=== PATIENT | female | born 2005 | race Caucasian/White ===

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

== ENCOUNTER 2025-05-27 15:46 | Emergency (ER) | payer MEDICAID, SELFPAY ==
[2025-05-27 15:48] VITALS: BP 109/71; PULSE 84; RESP 14; TEMP 37; O2SAT 98
== END 2025-05-27 16:37 | disposition left against medical advice (07) ==
LOC: ER 16:40
DX: Z53.21 Procedure and treatment not carried out due to patient leaving prior to being seen by health care provider (principal)

== ENCOUNTER 2025-06-11 10:51 | Emergency (ER) | payer MEDICAID, SELFPAY ==
[2025-06-11 11:06] VITALS: BP 98/65; PULSE 66; RESP 14; TEMP 36.7; O2SAT 97
--- NOTE | 2025-06-11 13:03 | W.ED.GENAD ---
Discharge Plan Disposition Patient Disposition: Home Discharge Details Clinical Impression: Sciatica Primary Care Provider: Rosy Antony ED Provider: Jose Rubin Home Meds and New Rx's Prescriptions: New prednisone 20 mg tablet 20 mg PO DAILY Qty: 3 0RF acetaminophen [Tylenol] 325 mg tablet 650 mg PO ONCE PRNQty: 30 0RF naproxen 250 mg tablet 250 mg PO BID PRNQty: 14 0RF cyclobenzaprine 5 mg tablet 5 mg PO QHS PRNQty: 7 0RF Continued propranolol 20 mg tablet 20 mg PO BID Patient Comments: TAKE ONE TABLET BY MOUTH TWICE A DAY citalopram 10 mg tablet 10 mg PO DAILY Patient Comments: TAKE ONE TABLET BY MOUTH EVERY DAY atomoxetine [Strattera] 18 mg capsule 18 mg PO ONCE albuterol 90 mcg/actuation aerosol 90 mcg inhalation PRN Discharge Instructions Instructions: Sciatica ED Additional Instructions: Please follow-up with your primary care provider regarding your visit to the emergency department today. Be sure to discuss results of all test performed here today to include radiology, and laboratory testing as well as results for any pending cultures. Should your symptoms worsen, or if you develop new concerning symptoms, please return immediately emergency department for further evaluation. HPI General Date/Time Provider Initiated Documentation: 06/11/25 11:03. HPI Narrative: MDM/Narrative: Initial Assessment: Hip pain radiating to knee, exacerbated by knee bending or outward movement, with recent heavy lifting. Differential Diagnosis: - Sciatic nerve irritation: Pain radiating down leg, exacerbated by certain movements. Plan: Tylenol, naproxen, prednisone, muscle relaxer. Referral to physical therapy. - Muscle strain: Recent heavy lifting. Plan: Same as above. - Doubt cauda equina given lack of red flag symptoms, normal motor function and sensation on examination ED Course: Administered Tylenol, naproxen, prednisone, muscle relaxer. Final Assessment: Administered medications for pain and inflammation, muscle relaxer. Referral to physical therapy. Clinical Impression: Sciatic nerve irritation, muscle strain. Disposition: Discharge home. Return if significant issues persist or new symptoms develop. Follow-Up: Referral to physical therapy. Work note for 2 days. Patient Education: Advised on medication use, including drowsiness from muscle relaxer. Encouraged to stay active and avoid prolonged rest. This document was created with assistance from EILEEN Co-Director Of Event Sales. The patient consented to its use. HPI: The patient is a 20-year-old female presenting with hip pain radiating to the knee, described as sharp and electric shock-like in nature. The pain has been intermittent since the day before yesterday, with a notable intensification this morning, resulting in a fall. The patient denies any specific injury but reports recent engagement in heavy lifting activities. She has not taken any [id number] medications for pain relief. There are no associated symptoms of numbness, weakness, or loss of bladder or bowel control. The patient has no other known medical conditions, denies drug use, and reports no fevers or chills. She has a history of irregular menstrual cycles. The pain exacerbates with knee flexion or external rotation and alleviates with knee extension or internal rotation. She denies any spinal pain. ROS: Negative besides as mentioned above Exam: Vital signs: Reviewed. General Appearance: Alert and oriented. No acute distress. HEENT: NCAT, EOMI, not icteric. External ears normal. No rhinorrhea. Moist mucous membranes. Neck: Supple, full range of motion, no observable masses, No meningeal sign. Respiratory: No Respiratory distress. No tachypnea. Cardiovascular: RRR, no edema. Gastrointestinal: Soft, nondistended, No rebound tenderness. Back: No midline back pain of the CT or L-spine Musculoskeletal: Pain with hip flexion and extension and external rotation. Negative straight leg raise bilaterally. Pain to palpation over the left sciatic notch Skin: Warm and dry, no rash. Neurological: Normal Gait, Grossly intact. Psychiatric: Appropriate for situation. Related Data Home Medications ?Medication ?Instructions ?Recorded ?Confirmed albuterol 90 mcg/actuation aerosol 90 mcg inhalation PRN 01/13/24 06/11/25 inhaler atomoxetine 18 mg capsule 18 mg PO ONCE 01/13/24 06/11/25 (Strattera) acetaminophen 325 mg tablet 650 mg (2 x 325 mg) PO ONCE PRN 06/11/25 (Tylenol) #30 tabs citalopram 10 mg tablet 10 mg PO DAILY 06/11/25 06/11/25 cyclobenzaprine 5 mg tablet 5 mg PO QHS PRN #7 tabs 06/11/25 naproxen 250 mg tablet 250 mg PO BID PRN #14 tabs 06/11/25 prednisone 20 mg tablet 20 mg PO DAILY #3 tabs 06/11/25 propranolol 20 mg tablet 20 mg PO BID 06/11/25 06/11/25 Previous Rx's ?Medication ?Instructions ?Recorded acetaminophen 325 mg tablet 650 mg (2 x 325 mg) PO ONCE PRN 06/11/25 (Tylenol) #30 tabs cyclobenzaprine 5 mg tablet 5 mg PO QHS PRN #7 tabs 06/11/25 naproxen 250 mg tablet 250 mg PO BID PRN #14 tabs 06/11/25 prednisone 20 mg tablet 20 mg PO DAILY #3 tabs 06/11/25 Allergies Allergy/AdvReac Type Severity Reaction Status Date / Time No Known Allergies Allergy Unverified 06/11/25 11:12 General Stated Complaint: Vascular HECTOR: 4 Course Vital Signs Vital signs: Vital Signs Temperature 36.7 C 06/11/25 11:06 Pulse 66 06/11/25 11:06 Respiratory Rate 14 06/11/25 11:06 Blood Pressure 98/65 L 06/11/25 11:06 Pulse Oximetry 97 06/11/25 11:06 Temperature 36.7 C 06/11/25 11:06 Temperature Source Oral 06/11/25 11:06 Pulse 66 06/11/25 11:06 Respiratory Rate 14 06/11/25 11:06 Blood Pressure 98/65 L 06/11/25 11:06 Blood Pressure Position Sitting 06/11/25 11:06 Pulse Oximetry 97 06/11/25 11:06 Oxygen Delivery Method Room Air 06/11/25 11:06 Oxygen Flow Rate 0 06/11/25 11:06 Pain Level 8 06/11/25 11:06 Medical Decision Making Quality:SDOH Health Related Social Needs: Health related social needs details Did report that she does not have a car PFSH All Active Problems (Updated 06/11/25 @ 13:28 by Jose Rubin MD) Sciatica (Acute) Social History Smoking/Tobacco Use Status: Current every day Tobacco Type: e-cigarettes Smoking risk assessment performed?: Yes Alcohol Intake: current Alcohol Intake frequency: a few times a month Drug use: Daily Substance use type: marijuana Do you feel safe at home: Yes Do you feel safe in your relationship?: Yes PAWSS Have you Been Recently Intoxicated or Drunk Within the Last 30 days?: No Have you Ever Experienced Previous Episodes of Alcohol Withdrawal?: No Have you ever Experienced Withdrawal Seizures?: No Have you ever Experienced Delirium Tremens(DT)s?: No Have you ever undergone Alcohol Rehabilitation Treatment (i.e, inpt ot outpatient treatment programs)?: No Have you ever Experienced Blackouts?: No Have you ever Combined Alcohol with other Downers within the last 90 days?: No Have you ever Combined Alcohol with any other Substance of Abuse during the last 90 days?: No Positive Blood Alcohol level on Presentation? [PCS.BAL]: No Evidence of Increased Autonomic Activity (i.e. HR>120, tremor, sweating, agitation, nausea)?: No Result: 0
[2025-06-11] MEDS: Ibuprofen 400 MG TAB PO (13:44)
[2025-06-11] MEDS: predniSONE 20 MG TAB PO (13:44)
[2025-06-11] MEDS: Acetaminophen 500 MG TAB 1000 MG PO (13:54)
== END 2025-06-11 14:02 | disposition home or self-care (01) ==
PROVIDERS: Emergency Provider General Practice
DX: M54.32 Sciatica, left side (principal)
CPT/HCPCS: 99283 ×2; J7512